=== PATIENT | male | born 1950 | race Two or more races ===

== ENCOUNTER 2020-06-20 07:50 | Outpatient (CLI) | payer MEDICARE, MEDICAID ==
[2020-06-20] MEDS ORDERED: OMNIPAQUE 350 MG/ML, 100ML BOTTLE ONE (08:30)
== END 2020-06-20 23:59 | disposition home or self-care (01) ==
LOC: CFH 07:50
PROVIDERS: ATTEND Family Medicine
DX: C61 Malignant neoplasm of prostate (principal); K40.90 Unilateral inguinal hernia, without obstruction or gangrene, not specified as recurrent; K44.9 Diaphragmatic hernia without obstruction or gangrene; M51.37 Other intervertebral disc degeneration, lumbosacral region
CPT/HCPCS: 74177; 82565; Q9967